=== PATIENT | female | born 1965 | race African-American/Black ===

== ENCOUNTER 2018-11-15 12:33 | Emergency (ER) | payer MEDICARE, MEDICAID ==
[~2018-11-15] VITALS: Ht 152.4 cm; Wt 114.1 kg
[2018-11-15 12:45] VITALS: BP 123/58; PULSE 86; TEMP 98.1
[2018-11-15] MEDS ORDERED: NORCO 325 MG-51 TAB PO (13:37)
[2018-11-15] MEDS ORDERED: NAPROSYN 2250 MG/TAB PO (13:37)
== END 2018-11-15 14:07 | disposition home or self-care (01) ==
LOC: COL.ER 12:33
DX: G89.29 Other chronic pain (principal); M25.561 Pain in right knee; E78.5 Hyperlipidemia, unspecified; I11.0 Hypertensive heart disease with heart failure; I50.9 Heart failure, unspecified; F17.210 Nicotine dependence, cigarettes, uncomplicated

== ENCOUNTER → 2018-12-04 | Outpatient (CLI) | payer MEDICARE, MEDICAID ==
[~2018-12-04] MED LIST: NAPROSYN 2250 MG/TAB PO; NORCO 325 MG-51 TAB PO
[2018-12-04 14:04] LABS: BASO % 0.4 % (0.0-2.0); EOS # 0.2 (0.0-0.7); GRAN # 5.1 (1.4-6.5); GRAN % 63.1 % (42.2-75.2); HEMOGLOBIN 11.6 g/dl (12.5-16.0); LYMPH # 2.1 (1.2-3.4); LYMPH % 26.1 % (20.0-51.0); MEAN CELL VOLUME 84 fl (80.0-100.0); MEAN CORPUSCULAR HEMOGLOBIN 27 pg (27.0-31.0); MEAN CORPUSCULAR HGB CONC 32 g/dl (33.0-37.0); MEAN PLATELET VOLUME 11.5 fl (7.4-10.4); MONO # 0.7 (0.1-0.6); MONO % 8.2 % (1.7-9.3); PLATELET COUNT 260 K/mm3 (130-400); RED BLOOD COUNT 4.25 M/mm3 (4.10-5.30); REDCELL DISTRIBUTION WIDTH-CV 13.9 % (11.5-14.5)
[2018-12-04 14:07] LABS: HEMATOCRIT 35.8 % (37.0-47.0)
[2018-12-04 14:15] LABS: BILIRUBIN,TOTAL 0.3 mg/dL (0.0-1.0); CALCIUM 9.2 mg/dL (8.4-10.2); CHOLESTEROL RISK RATIO 4.6; CREATININE, serum 1.06 (0.52-1.25); POTASSIUM 3.8 mmol/L (3.4-5.0); TOTAL PROTEIN 7.9 gm/dL (6.4-8.2)
== END ==
LOC: COL.LAB 12:55
PROVIDERS: Family Medicine
DX: Z13.29 Encounter for screening for other suspected endocrine disorder (principal); I50.9 Heart failure, unspecified; R22.1 Localized swelling, mass and lump, neck; E78.00 Pure hypercholesterolemia, unspecified

== ENCOUNTER 2019-03-22 10:27 | Observation (INO) | payer MEDICARE, MEDICAID ==
[~2019-03-22] VITALS: Ht 152.4 cm; Wt 117.0 kg
[2019-03-22] MEDS ORDERED: COREG 25MG25 MG/TAB PO (10:40)
[2019-03-22] MEDS ORDERED: HYDRALAZINE HC100 MG PO (10:40)
[2019-03-22] MEDS ORDERED: MOBIC15 MG PO (10:40)
[2019-03-22] MEDS ORDERED: LIPITOR20 MG PO (10:41)
[2019-03-22] MEDS ORDERED: LASIX 40MG TABL40 MG PO (10:41)
[2019-03-22] MEDS ORDERED: NORVASC 5MG5 MG/TAB PO (10:42)
[2019-03-22 10:57] LABS: BASO % 0.4 % (0.0-2.0); EOS # 0.1 (0.0-0.7); EOS % 1.3 % (0-4.0); GRAN # 6.1 (1.4-6.5); HEMOGLOBIN 11.9 g/dl (12.5-16.0); LYMPH # 2.4 (1.2-3.4); MEAN CELL VOLUME 86 fl (80.0-100.0); MEAN CORPUSCULAR HEMOGLOBIN 28 pg (27.0-31.0); MEAN CORPUSCULAR HGB CONC 32 g/dl (33.0-37.0); MEAN PLATELET VOLUME 11.5 fl (7.4-10.4); MONO # 0.7 (0.1-0.6); PLATELET COUNT 241 K/mm3 (130-400); REDCELL DISTRIBUTION WIDTH-CV 14.5 % (11.5-14.5)
[2019-03-22 10:59] LABS: HEMATOCRIT 36.9 % (37.0-47.0)
[2019-03-22 11:03] LABS: PROTHROMBIN TIME 11.5 SECONDS (9.7-12.8)
[2019-03-22 11:06] LABS: PARTIAL THROMBOPLASTIN TIME 53.4 SECONDS (26.0-37.0)
[2019-03-22 11:10] LABS: LIPASE 157 U/L (23-300)
[2019-03-22 11:28] LABS: TROPONIN-I < 0.012 ng/mL (0.000-0.035)
[2019-03-22 11:55] LABS: BILIRUBIN,TOTAL 0.3 mg/dL (0.0-1.0); CALCIUM 9.2 mg/dL (8.4-10.2); CREATININE, serum 1.03 (0.52-1.25); TOTAL PROTEIN 7.8 gm/dL (6.4-8.2)
[2019-03-22] MEDS ORDERED: NICODERM C21 MG/PATC TD (16:05)
[2019-03-22] MEDS ORDERED: NORCO 325 MG-51 TAB PO (16:06)
[2019-03-22 17:54] VITALS: BP 160/78; PULSE 71; TEMP 97.9
[2019-03-22 19:02] VITALS: BP 124/53; PULSE 86; TEMP 98.1
--- NOTE | 2019-03-22 19:36 | NUR ---
Pt admission assessment completed and charted. Pt sitting in recliner, A&O, independent in room. Pt denies chest pain at this time. Pt denies SOB, on room air, LS CTA. Pulses strong bilaterally. Heart RRR, murmur noted. 1+ BLE edema present. LAC INT IV flushes with no complications. Pt on tele. Pt to have lexiscan in morning, voiced no concerns. POC discussed, pt denies further needs at this time. Med rec, allergies and pharmacy completed.
--- NOTE | 2019-03-22 20:00 | NUR ---
Assessment complete. Pt resting in bed without any complaints of pain or discomfort. Denies chest pain, SOB, headache, nausea. BP 124/53, has ordered Hydralazine 100mg. [employer] notified and to hold PM dose of Hydralazine. Pt made aware. Lovenox administered to abdomen, pt tolerated well. INT to RAC patent, flushed well, dressing CDI, no pain to site. Tele monitor in place. Pt verbalized understanding of NPO after midnight in preparation of stress test in the AM. Call light within reach.
[2019-03-22 22:29] VITALS: BP 127/61; PULSE 87; TEMP 98.4
[2019-03-22 23:35] VITALS: BP 115/53; PULSE 85; TEMP 98.1
[2019-03-23] VITALS (9 sets, daily range): BP systolic 112–175; BP diastolic 56–88; PULSE 63–103; TEMP 98.2–98.5
--- NOTE | 2019-03-23 05:35 | NUR ---
Pt uneventful during this shift. No complaints of chest pain, SOB, headache, or discomfort. Pt slept throughout the night. Pt sleeping. Call light within reach.
[2019-03-23 06:19] LABS: CHOLESTEROL 160 mg/dL (120-200); CHOLESTEROL RISK RATIO 5.5; HDL CHOLESTEROL 29 mg/dL; LDL CHOLESTEROL 99 mg/dL; TRIGLYCERIDE 162 mg/dL
[2019-03-23 06:55] LABS: TROPONIN-I < 0.012 ng/mL (0.000-0.035)
--- NOTE | 2019-03-23 07:42 | NUR ---
Report given to RICHARD Vides.
[2019-03-23 07:47] LABS: BASO % 0.4 % (0.0-2.0); EOS # 0.1 (0.0-0.7); GRAN # 4.4 (1.4-6.5); GRAN % 63.3 % (42.2-75.2); HEMOGLOBIN 11.5 g/dl (12.5-16.0); LYMPH # 1.9 (1.2-3.4); LYMPH % 27.1 % (20.0-51.0); MEAN CELL VOLUME 86 fl (80.0-100.0); MEAN CORPUSCULAR HEMOGLOBIN 27 pg (27.0-31.0); MEAN CORPUSCULAR HGB CONC 32 g/dl (33.0-37.0); MEAN PLATELET VOLUME 12.7 fl (7.4-10.4); MONO # 0.5 (0.1-0.6); MONO % 7.1 % (1.7-9.3); PLATELET COUNT 200 K/mm3 (130-400); RED BLOOD COUNT 4.19 M/mm3 (4.10-5.30); REDCELL DISTRIBUTION WIDTH-CV 14.2 % (11.5-14.5)
[2019-03-23 07:50] LABS: HEMATOCRIT 36.2 % (37.0-47.0)
[2019-03-23 07:55] LABS: CREATININE, serum 0.91 (0.52-1.25)
--- NOTE | 2019-03-23 12:01 | NUR ---
Pt back from procedure at this time. A&O. Denies needs at this time.
--- NOTE | 2019-03-23 13:00 | NUR ---
Pt assessment completed and charted after pt returned to room. Pt A&O, independent in room. Pt on room air and tele. Denies SOB, dizziness, chest pain, palpitations, N/V/D. Breathing is even and unlabored. Heart RRR. Radial pulses strong bilaterally. BLE 1+ edema. LS CTA. LAC INT IV flushes w/ no complications. Morning medications administered per MAR upon pt arrival back from procedure. Flu vaccine administered and education provided. No other concerns voiced at this time.
--- NOTE | 2019-03-23 14:45 | NUR ---
Director Of Casework met with the patient and patient's sister Yamilet (ph#[phone]) to discuss discharge planning. Patient lives in [place] and moved here in September from [place]. Patient sees Dr. Ramandeep Mckinnon for primary care and obtains prescriptions from [facility] on [address] with no issue. Patient uses a cane at home and is interested in obtaining a walker. Patient reports independence with ADLS. Patient plans to return home upon discharge. SW to continue to follow as needed.
[2019-03-23] MEDS ORDERED: COREG12.5 MG PO (14:53)
--- NOTE | 2019-03-23 16:43 | NUR ---
Discharge instructions discussed and reviewed with patient who verbalized understanding. All questions answered, no further concerns voiced at this time. LAC INT IV dc'd w/ catheter tip intact and no complications. Pt escorted out by this nurse.
== END 2019-03-23 16:55 | disposition home or self-care (01) ==
LOC: COL.ER 10:27 → MEDICAL 12:27
PROVIDERS: Emergency Medicine; Physician Assistant; ADMIT Internal Medicine
DX: R07.89 Other chest pain (principal); I11.0 Hypertensive heart disease with heart failure; I50.9 Heart failure, unspecified; E66.01 Morbid (severe) obesity due to excess calories; Z68.43 Body mass index [BMI] 50.0-59.9, adult; E78.5 Hyperlipidemia, unspecified; F17.210 Nicotine dependence, cigarettes, uncomplicated; D64.9 Anemia, unspecified; Z79.899 Other long term (current) drug therapy; J96.12 Chronic respiratory failure with hypercapnia; Z99.81 Dependence on supplemental oxygen; Z79.84 Long term (current) use of oral hypoglycemic drugs; Z79.82 Long term (current) use of aspirin
CPT/HCPCS: A9500; G0008; G0378; J1650; J2785